=== PATIENT | male | born 1935 | race Caucasian/White ===

== ENCOUNTER → 2017-02-07 07:55 | Outpatient (CLI) | payer MEDICARE, BC ==
[2010-10-16 08:12] VITALS: BMI 23.4
== END | disposition home or self-care (01) ==
LOC: D.CT 07:55
DX: R63.4 Abnormal weight loss (principal)

== ENCOUNTER → 2017-02-14 09:32 | Outpatient (CLI) | payer MEDICARE, BC ==
[2010-10-16 08:12] VITALS: BMI 23.4
== END | disposition home or self-care (01) ==
LOC: D.MRI 09:32
DX: R63.4 Abnormal weight loss (principal)

== ENCOUNTER → 2017-08-27 08:04 | Outpatient (CLI) | payer MEDICARE, BC ==
[2010-10-16 08:12] VITALS: BMI 23.4
== END | disposition home or self-care (01) ==
LOC: D.MRI 08-11 08:00
DX: R93.5 Abnormal findings on diagnostic imaging of other abdominal regions, including retroperitoneum (principal)

== ENCOUNTER → 2017-10-30 | Emergency (ER) | payer MEDICARE, BC ==
[2010-10-16 08:12] VITALS: BMI 23.4
[2017-10-30 03:22] LABS: APPEARANCE CLEAR (CLEAR); BILIRUBIN NEGATIVE (NEGATIVE); COLOR YELLOW (YELLOW); GLUCOSE NEGATIVE (NEGATIVE); KETONE NEGATIVE (NEGATIVE); NITRITE NEGATIVE (NEGATIVE); PROTEIN NEGATIVE (NEGATIVE); UROBILINOGEN NORMAL (NORMAL)
[2017-10-30 03:23] LABS: BACTERIA FEW /hpf (NONE SEEN); EPITHELIAL CELLS 0-5 /hpf (0-5); RED CELLS - URINE 0-5 /hpf (0-5); WHITE CELLS - URINE 0-5 /hpf (0-5)
== END ==
LOC: D.ER 01:36
PROVIDERS: Family Medicine
DX: R33.9 Retention of urine, unspecified (principal)